=== PATIENT | female | born 1935 | race Caucasian/White ===

== ENCOUNTER → 2016-10-31 08:07 | Day surgery (SDC) | payer MEDICARE, BC ==
[~2016-10-31 08:07] MED LIST: BSS OPTH.SOL* BTL ONE; Buffered Lidocaine 1% SYRIN* 3 ML/SYR SYRINGE INTRADERM ONE; Bupivacaine 0.25% SDV* 30 ML ONE; Dexamethasone IV* 4 MG/ML 1 ML (4 MG) IV SLOW PU ONE; Dexamethasone IV* 4 MG/ML 1 ML (4 MG) ONE; Famotidine IV* 10 MG/ML 2 ML (20 mg) IV ONE; Famotidine IV* 10 MG/ML 2 ML (20 mg) ONE; HYDROcodone/ACETAMIN 5-325 MG* 1 TAB PO PRN; Lidocain 1% EPI 1:100,000 * 30 ML MDV ONE; Methylene Blue 1%* 10 ML VIAL ONE; Midazolam* 1 MG/ML 2 ML VIAL (2 MG) ONE; Ondansetron INJ* 2 MG/ML VIAL IV PRN; ceFAZolin 2 GM PREMIX(*) 2 GM/50 ML BAG IVPB ONE; fentaNYL* 50 MCG/ML 2 ML VIAL (100 MCG VIAL) IV PRN; fentaNYL* 50 MCG/ML 2 ML VIAL (100 MCG VIAL) ONE
[2016-10-31 10:49] VITALS: BP 112/66
== END | disposition home or self-care (01) ==
LOC: OREAST 08:07
PROVIDERS: ATTEND Plastic Surgery
DX: C44.321 Squamous cell carcinoma of skin of nose (principal); I10 Essential (primary) hypertension; E78.5 Hyperlipidemia, unspecified; E03.9 Hypothyroidism, unspecified
CPT/HCPCS: A9270-GY; J0690; J1100; J2250; J3010

== ENCOUNTER 2017-08-21 13:26 | Emergency (ER) | payer MEDICARE, BC, OTHER ==
[2017-08-21] MEDS ORDERED: Tetan/Diph/Pertus SYR(Tdap)* 0.5 ML SYR(BOOSTRIX) use SYR IM ONE (13:39)
[2017-08-21] MEDS ORDERED: traMADol TAB* 50 MG PO ONE (13:39)
[2017-08-21 13:42] VITALS: BP 167/79
--- NOTE | 2017-08-21 13:51 | UC ---
Head Injury HPI - HPI Summary HPI Summary: fell stepping down the stairs in the garage --no loc, family present hit right side of head, patient fells fine just concerned about wound on head - History Of Current Complaint Chief Complaint: UCHeadInjury Stated Complaint: FALL HEAD LACERATION Time Seen by Provider: 08/21/17 13:37 Hx Obtained From: Patient ?: No Mechanism Of Injury: fall Onset/Duration: Sudden Onset Severity Currently: Mild Severity Initially: Mild Aggravating Factor(s): Nothing Alleviating Factor(s): Nothing Associated Signs And Symptoms: Negative: LOC (Time In Secs./Mins/Hrs), LOC Duration Unknown, Confusion, Memory Loss, Seizure, Epistaxis, Dental Malocclusion, Neck Pain, Nausea, Vomiting - Allergies/Home Medications Allergies/Adverse Reactions: Allergies Allergy/AdvReac Type Severity Reaction Status Date / Time Lactose Intolerance (GI) Allergy GI Upset Verified 08/21/17 13:42 Shellfish Allergy Allergy RESPIRATORY Verified 08/21/17 13:42 ARREST PMH/Surg Hx/FS Hx/Imm Hx Previously Healthy: No Endocrine History: Hypothyroidism Cardiovascular History: Hypertension Neurological History: Other Other Neurological History: 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 CATARACT BILAT 2005. TUBAL LIGATION . LASER TREATMENT - EYE 2011. NOSE - SQUAMOUS CELLS - REMOVED 2013. TONSILLECTOMY 1939. CARDIAC CATH 2006 - Family History Known Family History: Positive: None - Social History Occupation: Retired Lives: With Family Alcohol Use: Occasionally Alcohol Amount: 1 glass wine with dinner occassonally Substance Use Type: None Smoking Status (MU): Never Smoked Tobacco Have You Smoked in the Last Year: No - Immunization History Most Recent Influenza Vaccination: Fall 2016 Most Recent Tetanus Shot: NOT UTD Review of Systems Constitutional: Negative Skin: Other - nickel size abrasion on right side scalp above ear Eyes: Negative ENT: Negative Respiratory: Negative Cardiovascular: Negative Gastrointestinal: Negative Genitourinary: Negative Motor: Negative Neurovascular: Negative Musculoskeletal: Negative Neurological: Negative Psychological: Negative Is Patient Immunocompromised?: No All Other Systems Reviewed And Are Negative: Yes Physical Exam Triage Information Reviewed: Yes Appearance: Well-Appearing, No Pain Distress, Thin Vital Signs: Initial Vital Signs Temp 98.1 F 08/21/17 13:29 Pulse 83 08/21/17 13:29 Resp 16 08/21/17 13:29 BP 167/79 08/21/17 13:29 Pulse Ox 98 08/21/17 13:29 Vital Signs Reviewed: Yes Eye Exam: Normal Eyes: Positive: Conjunctiva Clear ENT Exam: Normal ENT: Positive: Normal ENT inspection, Hearing grossly normal, TMs normal, Uvula midline. Negative: Nasal congestion, Nasal drainage, Tonsillar swelling, Tonsillar exudate, Trismus, Muffled voice, Hoarse voice, Dental tenderness, Sinus tenderness Dental Exam: Normal Neck exam: Normal Neck: Positive: Supple, Nontender, No Lymphadenopathy Respiratory Exam: Normal Respiratory: Positive: Chest non-tender, Lungs clear, Normal breath sounds, No respiratory distress, No accessory muscle use Cardiovascular Exam: Normal Cardiovascular: Positive: RRR, No Murmur, Pulses Normal, Brisk Capillary Refill Musculoskeletal Exam: Normal Musculoskeletal: Positive: Strength Intact, ROM Intact Neurological Exam: Normal Neurological: Positive: Alert, Muscle Tone Normal Psychological Exam: Normal Psychological: Positive: Normal Response To Family, Age Appropriate Behavior Skin Exam: Other Skin: Positive: Other - nichel size abrasion on right side of head above ear Diagnostics - Radiology No standard instances Xray Interpretation: No Acute Changes Radiology Interpretation Completed By: Radiologist - EKG Cardiac Rate: NL Cardiac Rhythm: Sinus: Normal Ectopy: None ST Segment: Normal Head Injury Course/Dx - Course Course Of Treatment: rest increase fluids, follow with pcp - Differential Dx/Diagnosis Provider Diagnoses: Hypertension in poor control, head injury due to fall Discharge - Discharge Plan Condition: Stable Disposition: HOME Prescriptions: traMADol TAB* [Ultram*] 25 mg PO Q6HR PRN #20 tab MDD 4 PRN Reason: Pain Patient Education Materials: Head Injury (ED), Abrasion (ED), Hypertension (ED) Referrals: Johnson Guerra MD [Primary Care Provider] - 1 Week
--- NOTE | 2017-08-21 14:39 | RAD ---
INDICATION: Intracranial injury. Fall. COMPARISON: None TECHNIQUE: Noncontrast axial source images were acquired from the skull base to the vertex. FINDINGS: Ventricles/sulci: The ventricles and cisterns are normal in size and configuration for age. There is mild age-related involutional change Brain parenchyma: There is no focal parenchymal finding, evidence of intracranial mass, or intracranial mass effect. There is mildly decreased attenuation in the periventricular white matter suggesting mild chronic microvascular ischemic change. Intracranial hemorrhage:None. Extra-axial spaces: There are no abnormal extra axial fluid collections or evidence of extra-axial mass. Calvarium: There is no calvarial fracture or other calvarial abnormality. Scalp: There is no evidence of scalp or extracalvarial soft tissue abnormality. Paranasal sinuses/mastoid: The paranasal sinuses and mastoid air cells are clear. Other: None. IMPRESSION: No acute intracranial findings
== END 2017-08-21 15:10 | disposition home or self-care (01) ==
LOC: UCEAST 13:26
DX: S01.91XA Laceration without foreign body of unspecified part of head, initial encounter (principal); E73.9 Lactose intolerance, unspecified; Z91.013 Allergy to seafood; E03.9 Hypothyroidism, unspecified; I10 Essential (primary) hypertension; G89.29 Other chronic pain; M25.512 Pain in left shoulder; M25.511 Pain in right shoulder; M54.2 Cervicalgia; W10.9XXA Fall (on) (from) unspecified stairs and steps, initial encounter; Y92.015 Private garage of single-family (private) house as the place of occurrence of the external cause
CPT/HCPCS: 70450; 90471; 90715; 93005; 99213; A9270-GY; G0463

== ENCOUNTER 2018-03-11 06:53 | Day surgery (SDC) | payer MEDICARE, BC ==
[~2018-03-11 06:53] MED LIST changes: +Acetaminophen TAB* 325 MG PO PRN; -BSS OPTH.SOL* BTL ONE; +Buffered Lidocaine 0.9% SYRIN* 5 ML/SYR SYRINGE INTRADERM ONE; -Buffered Lidocaine 1% SYRIN* 3 ML/SYR SYRINGE INTRADERM ONE; -Bupivacaine 0.25% SDV* 30 ML ONE; -Dexamethasone IV* 4 MG/ML 1 ML (4 MG) IV SLOW PU ONE; -Dexamethasone IV* 4 MG/ML 1 ML (4 MG) ONE; -Famotidine IV* 10 MG/ML 2 ML (20 mg) IV ONE; -Famotidine IV* 10 MG/ML 2 ML (20 mg) ONE; -HYDROcodone/ACETAMIN 5-325 MG* 1 TAB PO PRN; -Lidocain 1% EPI 1:100,000 * 30 ML MDV ONE; -Methylene Blue 1%* 10 ML VIAL ONE; -Midazolam* 1 MG/ML 2 ML VIAL (2 MG) ONE; -Ondansetron INJ* 2 MG/ML VIAL IV PRN; -ceFAZolin 2 GM PREMIX(*) 2 GM/50 ML BAG IVPB ONE; -fentaNYL* 50 MCG/ML 2 ML VIAL (100 MCG VIAL) IV PRN; -fentaNYL* 50 MCG/ML 2 ML VIAL (100 MCG VIAL) ONE; +mitoMYcin PWD* 0.2 MG in Sterile Water for Inj* 1 ML OPHTHALMIC SCH
[2018-03-11] MEDS ORDERED: Hyaluronidase OVINE* 200 UNIT/ML ML SUBCUT ONE (07:21)
[2018-03-11] MEDS ORDERED: Lidocaine 2% PF* 10 ML AMP ONE (07:21)
[2018-03-11] MEDS ORDERED: Sodium Bicarbonate 8.4% SYR* 10 ML SYRINGE ONE ×2 (07:21→07:22)
[2018-03-11] MEDS ORDERED: fentaNYL* 50 MCG/ML 2 ML VIAL (100 MCG VIAL) ONE (08:20)
[2018-03-11 09:33] VITALS: BP 154/82
[2018-03-11] MEDS ORDERED: Lidocaine 2% EPI 1:200000 MPF*10-20 ML VIAL ONE (14:47)
[2018-03-11] MEDS ORDERED: Povidone Iodine 5% OPTH* 30 ML BTL ONE (14:47)
[2018-03-11] MEDS ORDERED: Neomycin/Polymy/Dex OPTH.SUSP* MAXITROL 0.1% 5 ML ONE (14:47)
[2018-03-11] MEDS ORDERED: Lidocaine 1%* 5 ML VIAL ONE (14:47)
[2018-03-11] MEDS ORDERED: Proparacaine 0.5% OPHTH.SOL* 15 ML BTL ONE (14:48)
--- NOTE | 2018-03-11 16:38 | OP ---
DATE OF OPERATION: 03/11/18 - [facility] DATE OF : 35 SURGEON: Rafi Samuel MD ANESTHESIA: Local with MAC. PRE-OP DIAGNOSIS: Open angle glaucoma, right eye. POST-OP DIAGNOSIS: Open angle glaucoma, right eye. OPERATIVE PROCEDURE: XEN implant, right eye. COMPLICATIONS: None. DESCRIPTION OF PROCEDURE: The patient was prepped and draped in the usual sterile fashion. Lid speculum placed. A XEN implant was checked and marked with a making pen. Paracentesis 20 gauge was made at the 10 o'clock position. Anterior chamber irrigated with 1% nonpreserved intracameral lidocaine. Healon instilled into the anterior chamber. A 1.8 mm corneal incision made at the 7 o' clock position. Mitomycin C 0.2 mg/mL 0.1 mL was injected subtenon superiorly and 3 mm posterior to the limbus was marked. The XEN implant was inserted at the 130 position without difficulty. Healon irrigated out at the anterior chamber. Balanced salt solution used to reinflate, all wounds checks found to be water tight. Topical Maxitrol drops were given. [id number]/[facility] #: [id number] [facility]
== END 2018-03-11 09:45 | disposition home or self-care (01) ==
LOC: OREAST 06:53
PROVIDERS: ATTEND Specialist
DX: H40.1112 Primary open-angle glaucoma, right eye, moderate stage (principal); H20.013 Primary iridocyclitis, bilateral; H26.493 Other secondary cataract, bilateral; E03.9 Hypothyroidism, unspecified; M19.90 Unspecified osteoarthritis, unspecified site; I10 Essential (primary) hypertension
CPT/HCPCS: A9270-GY; C1725; J2001; J3010; J3471; J9280

== ENCOUNTER 2018-03-25 11:46 | Day surgery (SDC) | payer MEDICARE, BC ==
[~2018-03-25 11:46] MED LIST changes: +mitoMYcin 0.2 MG (0.02%) in Sterile Water for Inj* 1 ML SCH; -mitoMYcin PWD* 0.2 MG in Sterile Water for Inj* 1 ML OPHTHALMIC SCH
[2018-03-25 12:17] VITALS: BP 166/78
[2018-03-25] MEDS ORDERED: Proparacaine 0.5% OPHTH.SOL* 15 ML BTL ONE (12:37)
[2018-03-25] MEDS ORDERED: Lidocaine 1%* 5 ML VIAL ONE (12:37)
[2018-03-25] MEDS ORDERED: Neomycin/Polymy/Dex OPTH.SUSP* MAXITROL 0.1% 5 ML ONE (12:37)
[2018-03-25] MEDS ORDERED: Povidone Iodine 5% OPTH* 30 ML BTL ONE (12:37)
[2018-03-25] MEDS ORDERED: Lidocaine 2% EPI 1:200000 MPF*10-20 ML VIAL ONE (12:37)
[2018-03-25] MEDS ORDERED: Midazolam* 1 MG/ML 2 ML VIAL (2 MG) ONE (13:31)
[2018-03-25] MEDS ORDERED: fentaNYL* 50 MCG/ML 2 ML VIAL (100 MCG VIAL) ONE (13:47)
--- NOTE | 2018-03-25 21:44 | OP ---
DATE OF OPERATION: 03/25/18 - [facility] DATE OF : 35 SURGEON: Rafi Samuel M.D. ANESTHESIA: Local with MAC. PREOPERATIVE DIAGNOSIS: Uncontrolled glaucoma, left eye. OPERATIVE PROCEDURE: Insertion of Xen Gel stent, left eye. COMPLICATIONS: None. DESCRIPTION OF PROCEDURE: The patient was prepped and draped in the usual sterile fashion. Lid speculum was placed in the left eye. Topical 2% lidocaine with epinephrine was placed. The Xen implant was inked with sterile marking pen. A paracentesis incision made at the 2 o'clock position with a 20- gauge blade. Lidocaine 1% nonpreserved intracameral lidocaine was infused in the anterior chamber, then followed by Healon. A clear corneal incision was made 1.8 mm with a keratome at the 5 o'clock position, 3 mm marking posterior to the limbus superiorly was made, mitomycin-C 0.2 mg/mL 0.1 mL was injected subconjunctival superiorly. A Xen implant was placed transsclerally into position at the 11 o'clock position without difficulty. Balanced salt solution used to rinse any Healon out of the eye. Topical Maxitrol drops were placed. [id number]/[facility] #: [id number] [facility]
== END 2018-03-25 14:30 | disposition home or self-care (01) ==
LOC: OREAST 11:46
PROVIDERS: ATTEND Specialist
DX: H40.1122 Primary open-angle glaucoma, left eye, moderate stage (principal); H26.493 Other secondary cataract, bilateral; I10 Essential (primary) hypertension; E03.9 Hypothyroidism, unspecified; E78.5 Hyperlipidemia, unspecified; J30.89 Other allergic rhinitis; M19.90 Unspecified osteoarthritis, unspecified site
CPT/HCPCS: A9270-GY; C1725; J2250; J3010; J9280

== ENCOUNTER 2018-07-01 06:56 | Day surgery (SDC) | payer MEDICARE, BC ==
[~2018-07-01 06:56] MED LIST changes: -mitoMYcin 0.2 MG (0.02%) in Sterile Water for Inj* 1 ML SCH; +mitoMYcin PWD* 0.2 MG in Sterile Water for Inj* 1 ML OPHTHALMIC SCH
[2018-07-01] MEDS ORDERED: Proparacaine 0.5% OPHTH.SOL* 15 ML BTL ONE (07:04)
[2018-07-01] MEDS ORDERED: Sodium Bicarbonate 8.4% SYR* 10 ML SYRINGE ONE (07:57)
[2018-07-01] MEDS ORDERED: Triamcinolone Acetonide* 40 MG/ML 1 ML VIAL ONE (07:57)
[2018-07-01] MEDS ORDERED: Hyaluronidase OVINE* 200 UNIT/ML ML SUBCUT ONE ×2 (07:58→08:15)
[2018-07-01] MEDS ORDERED: Atropine 1% OPHTH.SOL* 2 ML BOT - 2 ML ONE (07:58)
[2018-07-01] MEDS ORDERED: BSS OPTH.SOL* BTL ONE (07:58)
[2018-07-01] MEDS ORDERED: Acetylcholine 1:100 OPTH* OPHTH.SOLN ONE (07:58)
[2018-07-01] MEDS ORDERED: Bupivacaine 0.25% SDV PF* 10 ML VIAL INJ ONE ×2 (07:59→08:15)
[2018-07-01] MEDS ORDERED: Midazolam* 1 MG/ML 2 ML VIAL (2 MG) ONE (08:41)
[2018-07-01] MEDS ORDERED: fentaNYL* 50 MCG/ML 2 ML VIAL (100 MCG VIAL) ONE (09:01)
[2018-07-01] MEDS ORDERED: Propofol* 10 MG/ML 20 ML BTL ONE (09:03)
[2018-07-01 09:54] VITALS: BP 150/67
--- NOTE | 2018-07-02 06:28 | OP ---
DATE OF OPERATION: 07/01/18 - [facility] DATE OF : 35 SURGEON: Rafi Samuel MD. ANESTHESIA: Local with MAC. PRE-OP DIAGNOSIS: Uncontrolled glaucoma, right eye. POST-OP DIAGNOSIS: Uncontrolled glaucoma, right eye. OPERATIVE PROCEDURE: Trabeculectomy, right eye. COMPLICATIONS: None. DESCRIPTION OF PROCEDURE: The patient was given retrobulbar anesthesia 50:50 mixture of 0.25 Marcaine mixed with 2% lidocaine with epinephrine, Vitrase, and bicarb 4 cc were given in the muscle cone without difficulty. Eye was prepped and draped in the usual sterile fashion. Lid speculum was placed. The eye rotated inferiorly. With 6-0 silk superior limbal traction suture, a fornix based conjunctiva peritomy was performed from the 10 o'clock to the 11:30 position using Leila scissors. Hemostasis achieved with cautery. A triangular, limbal based, half scleral thickness flap made with a 75 blade and a crescent blade. Paracentesis was made at the 9 o'clock position with the paracentesis blade. Mitomycin C 0.2 mg/mL was left subtenons for 90 seconds and thoroughly irrigated with balanced salt solution. The anterior chamber entered with a 3-mm keratome underneath the scleral flap. Miochol instilled into the anterior chamber. Some DisCoVisc instilled into the anterior chamber. A 3 x 1 mm trabecular block excised using a Shanika punch from underneath the scleral flap and then a peripheral iridectomy performed at that location using the Vannas scissors. The scleral flap sutured with one 10-0 nylon suture added at the apex. Then the conjunctiva closed using a running locking 10-0 nylon suture along the limbus and then 10-0 Vicryl along the other edges. Anterior chamber refilled with balanced salt solution. Traction suture removed. Kenalog 40 mg/mL 1 mL injected subtenons inferotemporally. All wounds were checked and found to be watertight. Topical Maxitrol and atropine were given. [id number]/[facility] #: [id number] [facility]
== END 2018-07-01 10:01 | disposition home or self-care (01) ==
LOC: OREAST 06:56
PROVIDERS: ATTEND Specialist
DX: H40.1112 Primary open-angle glaucoma, right eye, moderate stage (principal); H40.1121 Primary open-angle glaucoma, left eye, mild stage; I10 Essential (primary) hypertension; E03.9 Hypothyroidism, unspecified
CPT/HCPCS: A9270-GY; J2250; J2704; J3010; J3301; J3471; J3490; J9280

== ENCOUNTER 2018-08-12 06:30 | Day surgery (SDC) | payer MEDICARE, BC ==
[~2018-08-12 06:30] MED LIST changes: -Acetaminophen TAB* 325 MG PO PRN; +Famotidine IV* 10 MG/ML 2 ML (20 mg) IV ONE; +Lactated Ringers 1000 ML Bag* 1,000 ML IV SCH
[2018-08-12] MEDS ORDERED: Famotidine IV* 10 MG/ML 2 ML (20 mg) ONE (06:47)
[2018-08-12] MEDS ORDERED: Atropine 1% OPHTH.SOL* 1 DROP BTL 2-5 ML ONE (07:13)
[2018-08-12] MEDS ORDERED: Sodium Bicarbonate 8.4% SYR* 10 ML SYRINGE ONE (07:13)
[2018-08-12] MEDS ORDERED: Triamcinolone OPHTH Inj (NF) 40 MG/ML 1 ML VIAL *** OPHTH USE ONLY ONE (07:13)
[2018-08-12] MEDS ORDERED: Bupivacaine 0.25% SDV PF* 10 ML VIAL INJ ONE (07:13)
[2018-08-12] MEDS ORDERED: BSS OPTH.SOL* BTL ONE (07:14)
[2018-08-12] MEDS ORDERED: Hyaluronidase OVINE* 200 UNIT/ML ML SUBCUT ONE (07:15)
[2018-08-12] MEDS ORDERED: Carbachol 0.01% OPH.SOL* 1.5 ML OPHTH.SOLN ONE (07:15)
[2018-08-12] MEDS ORDERED: Midazolam* 1 MG/ML 2 ML VIAL (2 MG) ONE (07:18)
[2018-08-12] MEDS ORDERED: fentaNYL* 50 MCG/ML 2 ML VIAL (100 MCG VIAL) ONE (07:18)
[2018-08-12] MEDS ORDERED: Triamcinolone Acetonide* 40 MG/ML 1 ML VIAL ONE (07:34)
[2018-08-12] MEDS ORDERED: Propofol* 10 MG/ML 20 ML BTL ONE (07:47)
[2018-08-12 08:55] VITALS: BP 147/80
[2018-08-12] MEDS ORDERED: Lidocaine 1% MPF* 2 ML VIAL ONE (16:04)
[2018-08-12] MEDS ORDERED: Lidocaine 2% EPI 1:200000 MPF*10-20 ML VIAL ONE (16:04)
[2018-08-12] MEDS ORDERED: Povidone Iodine 5% OPTH* 30 ML BTL ONE (16:04)
[2018-08-12] MEDS ORDERED: Neomycin/Polymy/Dex OPTH.SUSP* MAXITROL 0.1% 5 ML ONE (16:04)
--- NOTE | 2018-08-12 20:46 | OP ---
DATE OF OPERATION: 08/12/18 - [facility] DATE OF : 35 SURGEON: Rafi Samuel MD ANESTHESIA: Local with MAC PRE-OP DIAGNOSIS: Uncontrolled glaucoma, left eye. POST-OP DIAGNOSIS: Uncontrolled glaucoma, left eye. OPERATIVE PROCEDURE: Trabeculectomy, left eye. COMPLICATIONS: None. DESCRIPTION OF PROCEDURE: The patient was given retrobulbar anesthesia in the operating room, 50:50 mixture of 2% lidocaine with epinephrine and 0.25 Marcaine mixed with Vitrase; 4 cc were given in the muscle without difficulty. Eye was prepped and draped in the usual sterile fashion. Lid speculum was placed. Superior corneal 6-0 silk traction suture was placed and the eye rotated inferiorly. A fornix-based conjunctival peritomy performed with the Leila scissors centered on the 1 o'clock position. Mitomycin-C 0.2 mg/mL was placed subconjunctivally for 30 seconds. Tissues were very friable and thin. A triangular, half scleral thickness scleral flap at limbal base was created at 1 o'clock position with a crescent blade. Anterior chamber entered with a 3-mm keratome. DisCoVisc and Miochol instilled into the anterior chamber. Peripheral iridectomy performed. The Shanika punch was used to remove a 3 x 1 mm trabecular block. The scleral flap sutured with two 10-0 nylon sutures, the conjunctiva closed with 10-0 nylon sutures. Again, the conjunctiva was very friable and difficult to close, but it appeared to be watertight at the end of the procedure. Paracentesis made at the 4 o'clock position. I refilled with balanced salt solution. Traction sutures removed and the eye was patched. [id number]/[facility] #: [id number] [facility]
== END 2018-08-12 08:58 | disposition home or self-care (01) ==
LOC: OREAST 06:30
PROVIDERS: ATTEND Specialist
DX: H40.1121 Primary open-angle glaucoma, left eye, mild stage (principal); E03.9 Hypothyroidism, unspecified; N18.9 Chronic kidney disease, unspecified; E78.5 Hyperlipidemia, unspecified; I12.9 Hypertensive chronic kidney disease with stage 1 through stage 4 chronic kidney disease, or unspecified chronic kidney disease
CPT/HCPCS: A9270-GY; J2250; J2704; J3010; J3301; J3471; J3490; J9280

== ENCOUNTER 2020-11-10 20:41 | Inpatient (IN) ==
[2020-11-10] MEDS ORDERED: NS 0.9% 1000 ml BAG 1,000 ML IV ONE (20:43)
[2020-11-10] MEDS ORDERED: Iodixanol (CONTRAST) 320 MG/ML 100 ML SDV IV ONE (20:56)
[2020-11-10 21:12] LABS: ABS Basophils 0.1 10^3/ul (0-0.2); ABS Lymphocytes 1.5 10^3/ul (1.0-4.8); ABS Neutrophils 5.1 10^3/ul (1.5-7.7); Eosinophil % 0.5 %; Hematocrit 40 % (35-47); Hemoglobin 13.9 g/dL (12.0-16.0); Lymphocyte % 19.6 %; Mean Corpuscular HGB Conc 35 g/dL (31-36); Mean Corpuscular Hemoglobin 34 pg (27-31); Mean Corpuscular Volume 98 fL (80-97); Mean Platelet Volume 8.5 fL (7.4-10.4); Platelet Count 366 10^3/uL (150-450); Red Blood Count 4.12 10^6 /uL (3.70-4.87); Red Cell Distribution Width 13 % (10-15); White Blood Count 7.7 10^3/uL (3.5-10.8)
[2020-11-10 21:26] LABS: Activated Partial Thrombo Time 27.1 seconds (26.0-38.0); INR 1.04 (0.82-1.09)
[2020-11-10 21:30] LABS: ALT 19 U/L (7-52); AST 23 U/L (13-39); Albumin 4.6 g/dL (3.2-5.2); Albumin/Globulin Ratio 1.6 (1-3); Alkaline Phosphatase 43 U/L (34-104); BUN/Creatinine Ratio 40.2 (8-20); Blood Urea Nitrogen 45 mg/dL (6-24); CO2 Carbon Dioxide 19 mmol/L (22-32); Calcium 9.9 mg/dL (8.6-10.3); Chloride 95 mmol/L (101-111); Cholesterol 274 mg/dL; EGFR African American 55.9 (>60); EGFR Non-African American 46.2 (>60); Globulin 2.8 g/dL (2-4); Glucose 118 mg/dL (70-100); HDL Cholesterol 49.1 mg/dL; LDL Cholesterol 190 mg/dL; Sodium 136 mmol/L (135-145); Total Protein 7.4 g/dL (6.4-8.9); Triglycerides 174 mg/dL
[2020-11-10 21:39] LABS: Anion Gap 22 mmol/L (2-11); Potassium 2.7 mmol/L (3.5-5.0)
[2020-11-10] MEDS: KCL 20 MEQ/100 ML IVPREMIX 20 MEQ/100 ML BAG IV SCH (22:21)
[2020-11-11 02:20] LABS: BUN/Creatinine Ratio 42.9 (8-20); Blood Urea Nitrogen 42 mg/dL (6-24); CO2 Carbon Dioxide 21 mmol/L (22-32); Calcium 8.5 mg/dL (8.6-10.3); Chloride 100 mmol/L (101-111); EGFR African American 65.3 (>60); EGFR Non-African American 53.9 (>60); Glucose 119 mg/dL (70-100); Sodium 134 mmol/L (135-145)
[2020-11-11 02:26] LABS: Anion Gap 13 mmol/L (2-11); Troponin I 0.22 ng/mL (<0.03)
[2020-11-11] MEDS ORDERED: Enoxaparin 30 MG/0.3 ML SYR SUBCUT SCH (03:00)
[2020-11-11 03:04] LABS: TSH Ultra Thyroid Stim Horm 2.22 mcIU/mL (0.34-5.60)
[2020-11-11] MEDS ORDERED: KCL 20 MEQ/100 ML IVPREMIX 20 MEQ/100 ML BAG IV ONE (05:36)
[2020-11-11] MEDS: KCL 20 MEQ/100 ML IVPREMIX 20 MEQ/100 ML BAG IV SCH (06:08)
[2020-11-11] MEDS: Enoxaparin 30 MG/0.3 ML SYR SUBCUT SCH (06:09)
[2020-11-11 06:45] LABS: BUN/Creatinine Ratio 44.6 (8-20); EGFR African American 70.2 (>60); Potassium 3.2 mmol/L (3.5-5.0)
[2020-11-11 06:58] LABS: Troponin I 0.23 ng/mL (<0.03)
[2020-11-11 13:43] LABS: Troponin I 0.13 ng/mL (<0.03)
[2020-11-11] MEDS ORDERED: Potassium Chloride LIQUID 20 MEQ/15 ML LIQUID PO ONE (15:12)
[2020-11-11] MEDS ORDERED: Acyclovir IV 500 MG/10 ML 100 ML VIAL (500 MG) IVPB SCH (19:00)
[2020-11-11] MEDS ORDERED: ACYCLOVIR IVPB SCH (20:00)
[2020-11-11] MEDS ORDERED: NS 0.9% IVPB SCH (20:00)
[2020-11-11] MEDS: Acyclovir IV 500 MG in NS 0.9% 100 ml BAG 100 ML IVPB SCH (22:13)
[2020-11-11] MEDS: Timolol 0.5% OPTH.SOL BTL BOTH EYES SCH (22:14)
[2020-11-12] MEDS: Enoxaparin 30 MG/0.3 ML SYR SUBCUT SCH (05:35)
[2020-11-12] MEDS: Acyclovir IV 500 MG in NS 0.9% 100 ml BAG 100 ML IVPB SCH (09:52)
[2020-11-12 11:34] LABS: Urine Appearance Cloudy; Urine Bilirubin Negative (Negative); Urine Blood Negative (Negative); Urine Color Yellow; Urine Glucose Negative (Negative); Urine Ketones Trace (Negative); Urine Nitrite Negative (Negative); Urine Protein 1+(30 mg/dL) (Negative); Urine Specific Gravity 1.034 (1.002-1.030); Urine Urobilinogen Negative (Negative)
[2020-11-12 11:41] LABS: Urine Bacteria Absent (Absent); Urine Red Blood Cell Absent (Absent); Urine Squamous Epithelial Cell Present (Absent); Urine White Blood Cell 3+(>20/hpf) (Absent)
[2020-11-12] MEDS: Timolol 0.5% OPTH.SOL BTL BOTH EYES SCH ×2 (21:19→21:50)
[2020-11-13] MEDS: Enoxaparin 30 MG/0.3 ML SYR SUBCUT SCH (05:38)
[2020-11-13 06:54] LABS: BUN/Creatinine Ratio 47.4 (8-20); Blood Urea Nitrogen 36 mg/dL (6-24); CO2 Carbon Dioxide 23 mmol/L (22-32); Calcium 8.6 mg/dL (8.6-10.3); Chloride 106 mmol/L (101-111); EGFR African American 87.5 (>60); EGFR Non-African American 72.3 (>60); Glucose 96 mg/dL (70-100); Sodium 140 mmol/L (135-145)
[2020-11-13 07:10] LABS: Anion Gap 11 mmol/L (2-11)
[2020-11-13 10:56] LABS: Cholesterol 179 mg/dL; HDL Cholesterol 45.1 mg/dL; LDL Cholesterol 114 mg/dL; Triglycerides 98 mg/dL
[2020-11-13] MEDS: Timolol 0.5% OPTH.SOL BTL BOTH EYES SCH (21:02)
[2020-11-14] MEDS: Enoxaparin 30 MG/0.3 ML SYR SUBCUT SCH (05:19)
[2020-11-14 07:45] VITALS: BP 137/60
== END 2020-11-14 10:25 ==
LOC: ED 20:41 → MEDTELE 11-11 00:58
PROVIDERS: ADMIT Internal Medicine; ATTEND Internal Medicine